=== PATIENT | female | born 1945 | race Two or more races ===

== ENCOUNTER 2019-02-24 11:51 | Inpatient (IN) | payer MEDICARE, OTHER ==
[~2019-02-24] VITALS: Ht 144.8 cm; Wt 41.3 kg
[2019-02-25 13:35] VITALS: BP 97/61
== END 2019-02-25 14:55 | disposition home or self-care (01) | DRG 87 ==
LOC: ED 15:48 → EDIP 15:49 → ED 15:57 → 3NE 18:10 → DCLOUNGE 02-25 14:39
PROVIDERS: ADMIT Internal Medicine; ATTEND Internal Medicine
DX: S06.5X0A Traumatic subdural hemorrhage without loss of consciousness, initial encounter (principal); S06.6X0A Traumatic subarachnoid hemorrhage without loss of consciousness, initial encounter; E78.5 Hyperlipidemia, unspecified; Z96.659 Presence of unspecified artificial knee joint; W01.0XXA Fall on same level from slipping, tripping and stumbling without subsequent striking against object, initial encounter; Y93.89 Activity, other specified; Y92.89 Other specified places as the place of occurrence of the external cause; Y99.8 Other external cause status; Z79.82 Long term (current) use of aspirin; Z90.49 Acquired absence of other specified parts of digestive tract
CPT/HCPCS: 36415; 70450; 70496; 72125; 80053; 85025; 85610; 93005; 99285; G0378; J3480; Q9967